=== PATIENT | female | born 1965 ===

== ENCOUNTER 2023-02-21 10:20 | Outpatient (CLI) | payer MEDICARE, MEDICAID ==
[~2023-02-21] VITALS: Ht 162.6 cm; Wt 86.4 kg
[2023-02-21] MEDS ORDERED: ESTR0.5T3 PO (13:54)
[2023-02-21] MEDS ORDERED: CETI10TA17 PO (13:54)
[2023-02-21] MEDS ORDERED: PSYL575P4 PO (13:54)
[2023-02-21] MEDS ORDERED: METO50TA7 PO (13:54)
[2023-02-21] MEDS ORDERED: OXYB-52 PO (13:54)
[2023-02-21] MEDS ORDERED: IBUP-1773 PO ×2 (13:54)
[2023-02-21] MEDS ORDERED: DIPH-1122 PO (13:54)
[2023-02-21] MEDS ORDERED: LOPE2CAP PO (13:54)
[2023-02-21] MEDS ORDERED: LISI20TA26 PO (13:54)
[2023-02-21] MEDS ORDERED: [UNRECOGNIZED DRUG - CODE] TP (13:54)
[2023-02-21] MEDS ORDERED: AMMO225L5 TP (13:54)
[2023-02-21] MEDS ORDERED: [UNRECOGNIZED DRUG - CODE] TP (13:54)
[2023-02-21] MEDS ORDERED: DOCU100C37 PO (13:54)
[2023-02-21] MEDS ORDERED: OLIV30OI EACH EAR (13:54)
[2023-02-21] MEDS ORDERED: MOM10U PO (13:54)
[2023-02-21] MEDS ORDERED: PIOG15TA67 PO (13:54)
[2023-02-21] MEDS ORDERED: NEOM28.410 TP (13:54)
[2023-02-21] MEDS ORDERED: OXYM15MI4 NS (13:54)
[2023-02-21] MEDS ORDERED: LEVO125C4 PO (13:54)
[2023-02-21] MEDS ORDERED: GUAI237L97 PO (13:54)
[2023-02-21] MEDS ORDERED: SODI14.13 TP (13:54)
[2023-02-21] MEDS ORDERED: SODI22SP NS (13:54)
[2023-02-21] MEDS ORDERED: MULT-1166 PO (13:54)
[2023-02-21] MEDS ORDERED: URSO300C3 PO (13:54)
[2023-02-21] MEDS ORDERED: CARB15DR87 OT (13:54)
[2023-02-21] MEDS ORDERED: NYST60PO TP (13:54)
[2023-02-21] MEDS ORDERED: ATOR20TA66 PO (13:54)
[2023-02-21] MEDS ORDERED: TRIA1TAB2 PO (13:54)
[2023-02-21] MEDS ORDERED: METF-397 PO (13:54)
== END 2023-02-21 13:56 | disposition home or self-care (01) ==
LOC: PREOP 10:20
PROVIDERS: ATTEND Otolaryngology Otolaryngology/Facial Plastic Surgery
DX: Z01.818 Encounter for other preprocedural examination (principal)